=== PATIENT | female | born 1975 | race Two or more races ===

== ENCOUNTER → 2024-03-16 | Outpatient (CLI) | payer MEDICAID, SELFPAY ==
--- NOTE | 2024-03-16 11:15 | XR_ITS ---
Examination: Screening digital mammography, bilateral Computer aided detection 3-D breast Tomosynthesis, bilateral Date and time of exam: March 16, 2024 1133 hours No priors Indication: Screening Technique: Nonmagnified MLO, CC views of the breasts to been obtained, reconstructed from 3-D Tomosynthesis images. R2 computer aided detection program utilized for evaluation of suspicious masses and/or abnormal calcifications. 3-D Tomosynthesis images obtained. Findings: The breasts are heterogeneously dense, which may obscure small masses 25 mm focal asymmetry indistinct margins upper left breast MLO view, anterior depth, 5.4 cm from the nipple Impression: BI-RADS Category 0: Incomplete: Need additional imaging evaluation 25 mm focal asymmetry upper left breast MLO view, 5.4 cm from the nipple Recommend follow-up spot tomographic views upper outer quadrant left breast left breast sonography to complete the workup
== END | disposition home or self-care (01) ==
LOC: CDIM 11:26
PROVIDERS: Referring Provider Family Medicine; Visit Provider Family Medicine
DX: Z12.31 Encounter for screening mammogram for malignant neoplasm of breast (principal); R92.8 Other abnormal and inconclusive findings on diagnostic imaging of breast; N64.89 Other specified disorders of breast
CPT/HCPCS: 77063; 77067